=== PATIENT | male | born 1985 | race Caucasian/White ===

== ENCOUNTER → 2017-05-28 | Emergency (ER) | payer MEDICAID, OTHER ==
[~2017-05-28] VITALS: Ht 157.5 cm; Wt 66.4 kg
[~2017-05-28] MED LIST: ACET500C5 PO
[2017-05-28 15:22] VITALS: Ht 157.5 cm; Wt 66.4 kg
--- NOTE | 2017-05-28 17:33 | RADRPT ---
PROCEDURE: CT Brain without contrast. CLINICAL INDICATION: Syncope, head injury. TECHNIQUE: A CT of the brain was performed on multidetector high-resolution CT scanner utilizing a xial sections from the skull base through the vertex without contrast. The scan was reviewed in sof t tissue brain and high frequency resolution bone algorithm windows. Images were reviewed on a high -resolution PACS workstation. One or more the following does reduction techniques were utilized: Aut omated exposure control, adjustment of the mA/ or kV according to patient's size, or use of iterativ e reconstruction technique. The exam CTDI = 44.77 mGy and the DLP = 720.23 mGy-cm. DICOM images are available. COMPARISON: None available. FINDINGS: The ventricles and sulci are age-appropriate. There is no intracranial hemorrhage, mass effect or mi dline shift. No abnormal intra-axial or extra-axial fluid collections are seen. The iverson/white jamar er differentiation is preserved. No acute skull abnormality is noted. The visualized paranasal sinus es are essentially clear. IMPRESSION: 1. No acute intracranial hemorrhage, transcortical infarction or mass effect. RPTAT: HH .Nader Stokes MD, MD Date Time Electronically viewed and signed by .Nader Stokes MD, MD on 05/28/2017 17:33 .N/
--- NOTE | 2017-05-28 17:48 | ERD ---
ER Documentation Chief Complaint Chief Complaint Complains of felling dizzy last night and fell in has bathroom HPI This 31-year-old male presents with a head injury. History is that his awoke him to brush his teeth. He apparently got dizzy and fell and hit the back of his head on the bathtub while brushing his teeth. Was possible loss of consciousness. He has no vomiting, visual changes, neck pain, weakness, chest pain or shortness of breath and denies any recent illnesses. This would happen one time a long time ago in the past with similar circumstances. ROS All systems reviewed and are negative except as per history of present illness. Medications Home Meds Active Scripts Acetaminophen* (Tylophen*) 500 Mg Capsule, 1 CAP PO Q6H Y for PAIN AND OR ELEVATED TEMP, #15 CAP Prov:MADISON MCKENZIE MD 05/28/17 Allergies Allergies: Coded Allergies: No Known Allergy (Unverified , 05/28/17) PMhx/Soc Medical and Surgical Hx: pt denies Medical Hx, pt denies Surgical Hx Hx Alcohol Use: Yes (12 beer/weekend) Hx Substance Use: No Hx Tobacco Use: No Smoking Status: Never smoker Physical Exam Vitals Vital Signs Date Time Temp Pulse Resp B/P Pulse Ox O2 Delivery O2 Flow Rate FiO2 05/28/17 15:22 97.3 74 20 118/77 97 Physical Exam Const: [] Letter, [id number]. Head: Atraumatic. Tender except that without significant hematoma, step-offs or deformities. Eyes: Normal Conjunctiva. Eyes are PERRLA and extraocular movements intact. ENT: Normal External Ears, Nose and Mouth. No hemotympanum. Neck: Full range of motion..~ No meningismus. No neck tenderness. Resp: Clear to auscultation bilaterally Cardio: Regular rate and rhythm, no murmurs Abd: Soft, non tender, non distended. Normal bowel sounds Skin: No petechiae or rashes Back: No midline or flank tenderness Ext: No cyanosis, or edema Neur: Awake and alert. Normal gait. No appreciable focal neurologic deficits. No cerebellar signs. Psych: Normal Mood and Affect Results 24 hrs Laboratory Tests Test 05/28/17 16:06 Bedside Glucose 90mg/dL Procedures/MDM CT brain was read as normal by the radiologist. Accu-Chek was normal. EKG: Rate/Rhythm: [Normal Sinus Rhythm] rate equals 74 QRS, ST, T-waves: [No changes consistent w/ acute ischemia] Impression: [No evidence of ischemia or arrhythmia] impression-normal EKG Patient presents with occipital head injury yesterday while brushing his teeth. History of being fatigued recently slipping suggest possible vasovagal syncope. There is no current signs or symptoms of intracranial bleeding, mass- effect, neurologic deficit, neck injury, life-threatening arrhythmias or additional emergent causes of presenting complaints. Discharged home with further observation, primary care follow-up and return precautions. The patient was stable with no new complaints during the ER course. Clinically, there is no current evidence to suggest meningitis, sepsis, acute abdomen, pneumonia, acute coronary syndrome, pulmonary embolism, or any other emergent condition appearing to require further evaluation or hospitalization. The patient should certainly return for any new or worsening symptoms per the aftercare instructions. They should otherwise follow-up with her primary care doctor for reevaluation this week. Departure Diagnosis: Primary Impression: Head injury Encounter type: initial encounter Qualified Code: S09.90XA - Injury of head , initial encounter Condition: Stable Patient Instructions: HEAD INJURY, No Wake-Up (Adult), Syncope, Unk Cause Additional Instructions: Examines normal hoy. Cheque otro vez con sun doctor primario en el proximo delaney or regresa para mas o nueva simptomas. MADISON MCKENZIE MD May 28, 2017 17:48
== END | disposition home or self-care (01) ==
LOC: FTE 15:19
DX: S09.90XA Unspecified injury of head, initial encounter (principal); W01.0XXA Fall on same level from slipping, tripping and stumbling without subsequent striking against object, initial encounter; Y92.9 Unspecified place or not applicable
CPT/HCPCS: 70450; 82962; Z7502; 93005